=== PATIENT | male | born 1945 | race Caucasian/White ===

== ENCOUNTER 2017-07-28 14:29 | Inpatient (IN) | payer OTHER, MEDICARE ==
[2017-07-28] VITALS (8 sets, daily range): BP systolic 166–218; BP diastolic 84–100; PULSE 64–120; RESP 16–20; TEMP 97.6–97.7; O2SAT 95–98
[~2017-07-28] VITALS: Ht 167.6 cm; Wt 85.4 kg
[~2017-07-28 14:29] MED LIST: ACCUKIT; AMLO5TAB22 PO; ASPI325T PO; ATOR40TA PO; FENO54TA PO; Glucose Test Strips; LANTUS2P SQ; METF-324 PO; METO25 PO; MUPI2OIN TOP; NITR0.4S SL; NOVORP2 SQ; RAMI10CA PO
[2017-07-28] MEDS ORDERED: SODIUM CHLORIDE 0.9% FLUSH 10 ML FLUSH IVF PRN (14:45)
[2017-07-28] MEDS ORDERED: LABETALOL HCL 100 MG/20 ML VIAL IV PUSH ONE (14:45)
[2017-07-28] MEDS ORDERED: GABA300C5 PO (14:57)
[2017-07-28] MEDS ORDERED: METO25TA3 PO (14:57)
[2017-07-28] MEDS ORDERED: BUPR75TA PO (14:57)
[2017-07-28] MEDS ORDERED: METF1000 PO (14:57)
[2017-07-28] MEDS ORDERED: FISHCAP4 PO (14:57)
[2017-07-28] MEDS ORDERED: ASPI81CH7 CHEW (14:57)
[2017-07-28] MEDS ORDERED: AMLO5TAB2 PO (14:57)
--- NOTE | 2017-07-28 15:01 | RADRPT ---
EXAM DATE/TIME: 07/28/2017 14:47 [facility] COMPARISON: No previous studies available for comparison. INDICATIONS : CVA, neuro symptoms, right sided numbness, weakness MEDICAL HISTORY : None. SURGICAL HISTORY : None. ENCOUNTER: Initial ACUITY: 3 days PAIN SCORE: 0/10 LOCATION: Bilateral chest FINDINGS: Minimal bibasilar parenchymal changes. Mild cardiomegaly. The portion of the bony skeleton visualize d is unremarkable. CONCLUSION: Minimal bibasilar parenchymal changes. Mild compensated cardiomegaly. Yassine Faulkner MD FACR on July 28, 2017 at 14:58 Board Certified Radiologist. This report was verified electronically.
[2017-07-28 15:03] LABS: BASOPHIL # 0.1 TH/MM3 (0-0.2); BASOPHIL % 0.7 % (0.0-2.0); EOSINOPHIL # 0.1 TH/MM3 (0-0.4); EOSINOPHIL % 0.9 % (0.0-4.0); HEMATOCRIT 42.9 % (39.0-51.0); HEMOGLOBIN 14.4 GM/DL (13.0-17.0); LYMPH % 17.3 % (9.0-44.0); LYMPHOCYTE # 1.9 TH/MM3 (1.0-4.8); MEAN CELL VOLUME 83.7 FL (80.0-100.0); MEAN CORPUSCULAR HEMOGLOBIN 28.1 PG (27.0-34.0); MEAN CORPUSCULAR HGB CONC 33.5 % (32.0-36.0); MEAN PLATELET VOLUME 8.6 FL (7.0-11.0); MONO % 7.4 % (0.0-8.0); MONOCYTE # 0.8 TH/MM3 (0-0.9); NEUT % 73.7 % (16.0-70.0); PLATELET COUNT 233 TH/MM3 (150-450); RED BLOOD COUNT 5.12 MIL/MM3 (4.50-5.90); RED CELL DISTRIBUTION WIDTH 12.6 % (11.6-17.2); WHITE BLOOD COUNT 10.9 TH/MM3 (4.0-11.0)
[2017-07-28 15:17] LABS: CHLORIDE 108 MEQ/L (98-107); SODIUM (NA) 140 MEQ/L (136-145)
[2017-07-28 15:20] LABS: BICARBONATE 26.2 MEQ/L (21.0-32.0); BLOOD UREA NITROGEN 19 MG/DL (7-18); CALCIUM 9.2 MG/DL (8.5-10.1); GLUCOSE,RANDOM 154 MG/DL (74-106)
[2017-07-28 15:23] LABS: ALT (GPT) 24 U/L (12-78); AST (GOT) 20 U/L (15-37)
[2017-07-28 15:24] LABS: GLOMERULAR FILTRATION RATE 74 ML/MIN (>89)
[2017-07-28 15:25] LABS: TOTAL BILIRUBIN ADULT 0.5 MG/DL (0.2-1.0); TOTAL PROTEIN 8.3 GM/DL (6.4-8.2)
--- NOTE | 2017-07-28 15:25 | PD ---
HPI Chief Complaint: Neuro Symptoms/ Deficits Time Seen by Provider: 14:32 Travel History International Travel<30 days: No Contact w/Intl Traveler<30days: No Traveled to known affect area: No History of Present Illness HPI 71-year-old male with history of hypertension, diabetes, here for evaluation of right-sided weakness and paresthesias. Symptoms started 2 days ago and have been progressively worsening. Patient feels right arm and right leg weakness as well as numbness to his right arm, right leg, and right face. His daughter has also noted slurred speech. She noticed a slight right facial droop yesterday which seems to be worse today. She tried to convince her father to present to the emergency department yesterday, however the patient states that he wanted to wait until tomorrow to follow-up with his primary care physician. He is having a hard time ambulating and today started having some blurriness in all visual izquierdo. No headache. No chest pain or dyspnea. No fevers or recent illness. No abdominal pain. PFSH Past Medical History Arthritis: No Heart Rhythm Problems: No Cancer: No Cardiac Catheterization: Yes Cardiovascular Problems: Yes (HIGH CHOLESTEROL, [place], CARDIAC STENTS) High Cholesterol: Yes Chest Pain: No Congestive Heart Failure: No Diabetes: Yes Patient Takes Glucophage: Yes Diminished Hearing: No Gastrointestinal Disorders: No Glaucoma: No Hepatitis: No Hiatal Hernia: No Hypertension: Yes Medical other: No Musculoskeletal: Yes (HX OF BACK PROBLEMS) Neurologic: No Psychiatric: No Reproductive: No Respiratory: No Myocardial Infarction: Yes Thyroid Disease: No Tetanus Vaccination: Unknown Past Surgical History Abdominal Surgery: No Cardiac Surgery: Yes (CARDIAC STENTS) Ear Surgery: No Endocrine Surgery: No Eye Surgery: No Genitourinary Surgery: No Gynecologic Surgery: No Neurologic Surgery: No Oral Surgery: No Pacemaker: No Thoracic Surgery: No Other Surgery: Yes Social History Alcohol Use: No Tobacco Use: No Substance Use: No Allergies-Medications (Allergen,Severity, Reaction): Coded Allergies: codeine (Unverified Allergy, Intermediate, clammy,nausea., 07/28/17) morphine (Unverified Allergy, Intermediate, clammy, nausea, 07/28/17) Uncoded Allergies: NIASPAN (Allergy, Mild, ITCHING, 10/15/07) Reported Meds & Prescriptions Reported Meds & Active Scripts Active Reported Aspirin Children's (Aspirin) 81 Mg Chew 162 Mg CHEW DAILY Fish Oil + D3 (Fish Oil-Cholecalciferol) 1,200-1,000 Mg-Unit Cap 2 Cap PO DAILY Bupropion HCl 75 Mg Tab 75 Mg PO DAILY Metoprolol Tartrate 25 Mg Tab 25 Mg PO BID Gabapentin 300 Mg Cap 300 Mg PO HS Amlodipine (Amlodipine Besylate) 5 Mg Tab 5 Mg PO DAILY Metformin (Metformin HCl) 1,000 Mg Tab 1,000 Mg PO BIDPC Review of Systems Except as stated in HPI: all other systems reviewed are Neg Physical Exam Narrative GENERAL: Well-developed, well-nourished, awake, alert, GCS 15, no apparent distress. SKIN: Focused skin assessment warm/dry. HEAD: Atraumatic. Normocephalic. EYES: Pupils equal and round. No scleral icterus. No injection or drainage. ENT: No nasal bleeding or discharge. Mucous membranes pink and moist. NECK: Trachea midline. No JVD. CARDIOVASCULAR: Regular rate and rhythm. No murmur appreciated. RESPIRATORY: No accessory muscle use. Clear to auscultation. Breath sounds equal bilaterally. GASTROINTESTINAL: Abdomen soft, non-tender, nondistended. Hepatic and splenic margins not palpable. MUSCULOSKELETAL: No obvious deformities. No clubbing. No cyanosis. No edema. NEUROLOGICAL: Awake and alert. Slight right facial droop. No tongue deviation. Muscle strength in right upper and right lower extremities 3 out of 5, in the left upper and left lower extremities 5/5. No pronator drift. Dysmetria with [id number]-[id number] test on the right. PSYCHIATRIC: Appropriate mood and affect; insight and judgment normal. Data Data Last Documented VS Vital Signs Date Time Temp Pulse Resp B/P (MAP) Pulse Ox O2 Delivery O2 Flow Rate FiO2 07/28/17 15:18 68 16 173/84 (113) 96 Room Air 07/28/17 14:31 97.7 Orders Orders Electrocardiogram (07/28/17 14:40) Prothrombin Time / Inr (Pt) (07/28/17 14:40) Act Partial Throm Time (Ptt) (07/28/17 14:40) Complete Blood Count With Diff (07/28/17 14:40) Comprehensive Metabolic Panel (07/28/17 14:40) Ct Brain W/O Iv Contrast(Rout) (07/28/17 14:40) Chest, Single Ap (07/28/17 14:40) Ecg Monitoring (07/28/17 14:40) Iv Access Insert/Monitor (07/28/17 14:40) Oximetry (07/28/17 14:40) Sodium Chloride 0.9% Flush (Ns Flush) (07/28/17 14:45) Labetalol Inj (Trandate Inj) (07/28/17 14:45) Labs Laboratory Tests Test 07/28/17 14:40 White Blood Count 10.9 TH/MM3 Red Blood Count 5.12 MIL/MM3 Hemoglobin 14.4 GM/DL Hematocrit 42.9 % Mean Corpuscular Volume 83.7 FL Mean Corpuscular Hemoglobin 28.1 PG Mean Corpuscular Hemoglobin Concent 33.5 % Red Cell Distribution Width 12.6 % Platelet Count 233 TH/MM3 Mean Platelet Volume 8.6 FL Neutrophils (%) (Auto) 73.7 % Lymphocytes (%) (Auto) 17.3 % Monocytes (%) (Auto) 7.4 % Eosinophils (%) (Auto) 0.9 % Basophils (%) (Auto) 0.7 % Neutrophils # (Auto) 8.0 TH/MM3 Lymphocytes # (Auto) 1.9 TH/MM3 Monocytes # (Auto) 0.8 TH/MM3 Eosinophils # (Auto) 0.1 TH/MM3 Basophils # (Auto) 0.1 TH/MM3 CBC Comment DIFF FINAL Differential Comment Blood Urea Nitrogen 19 MG/DL Creatinine 1.00 MG/DL Random Glucose 154 MG/DL Total Protein 8.3 GM/DL Albumin 4.0 GM/DL Calcium Level 9.2 MG/DL Alkaline Phosphatase 109 U/L Aspartate Amino Transf (AST/SGOT) 20 U/L Alanine Aminotransferase (ALT/SGPT) 24 U/L Total Bilirubin 0.5 MG/DL Sodium Level 140 MEQ/L Potassium Level 4.1 MEQ/L Chloride Level 108 MEQ/L Carbon Dioxide Level 26.2 MEQ/L Anion Gap 6 MEQ/L Estimat Glomerular Filtration Rate 74 ML/MIN [facility] Medical Decision Making Medical Screen Exam Complete: Yes Emergency Medical Condition: Yes Interpretation(s) EKG: Sinus, rate 66, normal axis, normal intervals, Q waves in inferior leads, no acute ischemic abnormality. Differential Diagnosis CVA, ischemic versus hemorrhagic, metabolic abnormality, hypertensive crisis Narrative Course Initial vital signs show heart rate 60, blood pressure 218/100, pulse ox 97% on room air, oral temp 97.7F. Patient was given 10 mg of IV labetalol with improvement in blood pressure to 173/84. CBC is essentially unremarkable. CMP is remarkable for random glucose 154, otherwise unremarkable. Chest x-ray: Minimal bibasilar parenchymal change. Mild compensated cardiomegaly. CT head: Negative for acute process. Patient was made aware of all findings. He states he has taken 4 baby aspirin today. He will be admitted for further treatment and evaluation of CVA. Case discussed with hospitalist Dr. Pantoja who will admit the patient to her service. Diagnosis Primary Impression: CVA (cerebral vascular accident) Qualified Codes: I63.9 - Cerebral infarction, unspecified Admitting Information Admitting Physician Requests: Admit Krish Nowak MD July 28, 2017 15:25
[2017-07-28 15:26] LABS: ALKALINE PHOSPHATASE 109 U/L (45-117)
--- NOTE | 2017-07-28 15:48 | RADRPT ---
EXAM DATE/TIME: 07/28/2017 15:31 [facility] COMPARISON: No previous studies available for comparison. INDICATIONS : Right sided weakness and difficulty speaking. RADIATION DOSE: 59.73 CTDIvol (mGy) MEDICAL HISTORY : Cardiovascular disease. Hypercholesterolemia. Hypertension. SURGICAL HISTORY : Coronary artery stent. ENCOUNTER: Initial ACUITY: 2 days PAIN SCALE: 0/10 LOCATION: cranial TECHNIQUE: Multiple contiguous axial images were obtained of the head. Using automated exposure control and adjustment of the mA and/or kV according to patient size, radiation dose was kept as low as reasonably achievable to obtain optimal diagnostic quality images. DICOM format image data is av ailable electronically for review and comparison. FINDINGS: CEREBRUM: The ventricles are normal for age. No evidence of midline shift, mass lesion, hemorrha ge or acute infarction. No extra-axial fluid collections are seen. POSTERIOR FOSSA: The cerebellum and brainstem are intact. The 4th ventricle is midline. The cer ebellopontine angle is unremarkable. EXTRACRANIAL: The visualized portion of the orbits is intact. SKULL: The calvaria is intact. No evidence of skull fracture. CONCLUSION: Negative for acute process Yassine Faulkner MD FACR on July 28, 2017 at 15:45 Board Certified Radiologist. This report was verified electronically.
[2017-07-28] MEDS ORDERED: SODIUM CHLORIDE 0.9% FLUSH 10 ML FLUSH IV FLUSH PRN (16:15)
[2017-07-28] MEDS ORDERED: DEXTROSE 50% IN WATER 50 ML VIAL(D50) IV PUSH PRN (16:15)
[2017-07-28] MEDS ORDERED: GLUCAGON 1 MG/ML VIAL OTHER PRN (16:15)
[2017-07-28 16:44] LABS: PROTHROMBIN TIME - PATIENT 10.2 SEC (9.8-11.6)
[2017-07-28] MEDS ORDERED: INSULIN ASPART SUPPLEMENTAL SCALE SQ SCH (17:00)
[2017-07-28] MEDS: INSULIN ASPART SUPPLEMENTAL SCALE SQ SCH ×2 (17:47→21:00)
--- NOTE | 2017-07-28 18:58 | RADRPT ---
EXAM DATE/TIME: 07/28/2017 17:26 [facility] COMPARISON: No previous studies available for comparison. INDICATIONS : Right sided weakness, paresthesia, right facial droop, and slurred speech. MEDICAL HISTORY : Hypertension. Diabetes mellitus type 2. Hypercholesterolemia. Myocardial Infarction. SURGICAL HISTORY : Cardiac catheterization with stents x 2. ENCOUNTER: Initial ACUITY: 2 days PAIN SCORE: 0/10 LOCATION: Bilateral neck PEAK SYSTOLIC VELOCITIES (cm/sec): ICA/CCA RATIO: Right: 1.3 Left: 0.8 ICA: Right: 110 Left: 80 CCA: Right: 82 Left: 100 ECA: Right: 78 Left: 79 VERTEBRAL: Right: 71 antegrade Left: 53 antegrade Elevated flow velocities and ICA/CCA ratios have been found to correlate with increased degrees of vessel stenosis, calculated as percentage of diameter relative to a normal segment of distal ICA/CCA FINDINGS: RIGHT CAROTID: No significant stenosis is visualized. Mild plaque. The waveforms are within normal limits. LEFT CAROTID: No significant stenosis is visualized. Mild plaque. The waveforms are within normal limits. VERTEBRAL ARTERIES: Antegrade flow is seen in both vertebral arteries. MISCELLANEOUS: None. CONCLUSION: No hemodynamically significant stenosis in either carotid artery. Jayme Pretty MD on July 28, 2017 at 18:55 Board Certified Radiologist. This report was verified electronically.
[2017-07-28] MEDS ORDERED: PRAVASTATIN SOD 40 MG TAB PO SCH (21:00)
[2017-07-28] MEDS: SODIUM CHLORIDE 0.9% FLUSH 10 ML FLUSH IV FLUSH SCH (21:07)
[2017-07-28] MEDS: GABAPENTIN 300 MG CAP PO SCH (21:07)
[2017-07-28] MEDS: METOPROLOL TARTRATE 25 MG TAB PO SCH (21:07)
[2017-07-28] MEDS: HEPARIN SODIUM - SQ 10,000 UNITS/ML VIAL SQ SCH (21:08)
[2017-07-28] MEDS ORDERED: LORazepam 2 MG/ML VIAL IV PUSH PRN (23:30)
[2017-07-28] MEDS ORDERED: ALPRAZolam 0.25 MG TAB PO ONE (23:30)
[2017-07-29] VITALS (17 sets, daily range): BP systolic 143–186; BP diastolic 55–102; PULSE 64–127; RESP 12–26; TEMP 96.7–98; O2SAT 95–99
[2017-07-29] MEDS: HEPARIN SODIUM - SQ 10,000 UNITS/ML VIAL SQ SCH ×3 (06:04→20:46)
[2017-07-29] MEDS: INSULIN ASPART SUPPLEMENTAL SCALE SQ SCH ×4 (08:00→20:47)
[2017-07-29] MEDS: SODIUM CHLORIDE 0.9% FLUSH 10 ML FLUSH IV FLUSH SCH ×2 (09:00→20:47)
[2017-07-29] MEDS: METOPROLOL TARTRATE 25 MG TAB PO SCH (09:00)
[2017-07-29] MEDS: buPROPion HCL 75 MG TAB PO SCH (10:28)
[2017-07-29] MEDS: ASPIRIN 325 MG TAB PO SCH (10:29)
[2017-07-29] MEDS: amLODIPine BESYLATE 5 MG TAB PO SCH (10:29)
--- NOTE | 2017-07-29 10:36 | RADRPT ---
EXAM DATE/TIME: 07/29/2017 09:22 [facility] COMPARISON: No previous studies available for comparison. INDICATIONS : Right sided weakness. MEDICAL HISTORY : Hypertension. Diabetes mellitus type 2. SURGICAL HISTORY : None. ENCOUNTER: Initial ACUITY: 2 day PAIN SCORE: 0/10 LOCATION: head TECHNIQUE: Multiplanar, multisequence MRI of the brain was performed without contrast. FINDINGS: There is focal restricted diffusion involving the basalganglia left side extending through the recreation facility attendant ior limb internal capsule. There is no restricted effusion on the right. Ventricular size is appropriate. Mild periventricular white matter changes are evident. There is no parenchymal hemorrhage. No extra-axial fluid collection appreciated. Posterior fossa is unremarkable midline fourth ventricle The orbits and sinuses are unremarkable. CONCLUSION: Focal restricted diffusion basalganglia left side involving posterior limb internal capsule without h emorrhage. Mild atrophy. Yassine Faulkner MD FACR on July 29, 2017 at 10:05 Board Certified Radiologist. This report was verified electronically.
[2017-07-29 10:37] LABS: CHOLESTEROL/ HDL RATIO 6.38 RATIO; HDL CHOLESTEROL 35.7 MG/DL (40.0-60.0)
--- NOTE | 2017-07-29 10:37 | RADRPT ---
EXAM DATE/TIME: 07/29/2017 09:22 [facility] COMPARISON: No previous studies available for comparison. INDICATIONS : Right sided weakness. MEDICAL HISTORY : Hypertension. Diabetes mellitus type 2. SURGICAL HISTORY : None. ENCOUNTER: Initial ACUITY: 2 day PAIN SCORE: 0/10 LOCATION: head Please note a normal MRA of the brain does not entirely exclude the possibility of a small aneurysm, nor the possibility of distal intracranial vessel disease. TECHNIQUE: 3D time of flight MRA was performed. Source images, multiplanar STS MIP, and 3D volume MIP reconstru ctions were reviewed. FINDINGS: There is excellent visualization of the major intracranial arteries out to the second-order branch ve ssels. There is no evidence for aneurysm, vessel truncation or stenosis, and no evidence for vascula r malformation. CONCLUSION: Negative for major branch vessel occlusion.. Yassine Faulkner MD FACR on July 29, 2017 at 10:33 Board Certified Radiologist. This report was verified electronically.
--- NOTE | 2017-07-29 12:54 | HHI.HP ---
[facility] Admission Diagnosis CVA Diagnoses: Chief Complaint: Right-sided weakness and slurred speech Travel History International Travel<30 Days: No Contact w/Intl Traveler <30 Da: No Traveled to Known Affected Are: No History of Present Illness This patient is a 71-year-old gentleman with diabetes and hypertension who comes in with 2 days of worsening right-sided weakness and numbness. His daughter noticed that he had a facial droop and urged him to come to the hospital by the patient did refuse. He can no longer ambulate and has difficulty expressing himself and has come to the emergency room for further evaluation and treatment. MRI does show a left basal ganglia infarct. Patient has elevated blood pressure as well questionable adherence issues have been brought by the family. Blood pressure on arrival was 218/100. Patient normally takes amlodipine and metoprolol at home. The patient's symptoms appear to have worsened overnight and that his expressive aphasia is more dense as well as his right hemiparesis has become more dense. Patient be transferred to the ICU for further monitoring and for continued management. Review of Systems Constitutional: DENIES: Diaphoretic episodes, Fatigue, Fever, Weight gain, Weight loss, Chills, Dizziness, Change in appetite, Night Sweats Endocrine: DENIES: Heat/cold intolerance, Polydipsia, Polyuria, Polyphagia Eyes: DENIES: Blurred vision, Diplopia, Eye inflammation, Eye pain, Vision loss , Photosensitivity, Double Vision Ears, nose, mouth, throat: DENIES: Tinnitus, Hearing loss, Vertigo, Nasal discharge, Oral lesions, Throat pain, Hoarseness, Ear Pain, Running Nose, Epistaxis, Sinus Pain, Toothache, Odynophagia Respiratory: DENIES: Apneas, Cough, Snoring, Wheezing, Hemoptysis, Sputum production, Shortness of breath Cardiovascular: DENIES: Chest pain, Palpitations, Syncope, Dyspnea on Exertion , PND, Lower Extremity Edema, Orthopnea, Claudication Genitourinary: DENIES: Sexual dysfunction, Urinary frequency, Urinary incontinence, Urgency, Hematuria, Dysuria, Nocturia, Penile Discharge, Testicular Pain, Testicular Swelling Musculoskeletal: DENIES: Joint pain, Muscle aches, Stiffness, Joint Swelling, Back pain, Neck pain Integumentary: DENIES: Abnormal pigmentation, Nail changes, Pruritus, Rash Hematologic/lymphatic: DENIES: Bruising, Lymphadenopathy Immunologic/allergic: DENIES: Eczema, Urticaria Neurologic: COMPLAINS OF: Abnormal gait, Localized weakness, Speech Problems, Poor Balance, DENIES: Headache, Paresthesias, Seizures, Tremor Psychiatric: DENIES: Anxiety, Confusion, Mood changes, Depression, Hallucinations, Agitation, Suicidal Ideation, Homicidal Ideation, Delusions Except as stated in HPI: all other systems reviewed are Neg Past Family Social History Past Medical History Hypertension Diabetes Depression Past Surgical History Inguinal hernia repair Cardiac stent Reported Medications Reviewed in the EMR Allergies: Coded Allergies: codeine (Unverified Allergy, Intermediate, clammy,nausea., 07/28/17) morphine (Unverified Allergy, Intermediate, clammy, nausea, 07/28/17) Uncoded Allergies: NIASPAN (Allergy, Mild, ITCHING, 10/15/07) Active Ordered Medications Reviewed in the EMR Family History History of diabetes and hypertension Social History Lives with his family, no tobacco or alcohol dependency issues Retired Physical Exam Vital Signs Vital Signs Date Time Temp Pulse Resp B/P (MAP) Pulse Ox O2 Delivery O2 Flow Rate FiO2 07/29/17 12:13 97.0 74 18 160/82 (108) 96 07/29/17 12:00 97.0 74 18 160/98 (118) 96 07/29/17 08:35 96.9 71 19 164/87 (112) 96 07/29/17 08:00 96.9 71 19 164/87 (112) 96 07/29/17 08:00 68 07/29/17 04:00 97.6 127 18 178/90 (119) 98 07/29/17 00:00 96.7 116 17 168/81 (110) 99 07/28/17 20:00 97.6 120 19 166/87 (113) 95 07/28/17 19:39 74 07/28/17 18:24 97.7 69 18 178/85 (116) 98 07/28/17 17:06 07/28/17 15:18 68 16 173/84 (113) 96 Room Air 07/28/17 15:08 64 16 173/92 (119) 96 Room Air 07/28/17 14:58 65 16 181/89 (119) 97 Room Air 07/28/17 14:48 16 97 Room Air 07/28/17 14:47 16 97 Room Air 07/28/17 14:31 97.7 68 20 218/100 (139) 97 Physical Exam GENERAL: This is a well-nourished, well-developed patient, who is with slurred speech and with dense right hemiparesis SKIN: No rashes, ecchymoses or lesions. Cool and dry. HEAD: Atraumatic. Normocephalic. No temporal or scalp tenderness. EYES: Pupils equal round and reactive. Extraocular motions intact. No scleral icterus. No injection or drainage. ENT: Nose without bleeding, purulent drainage or septal hematoma. Throat without erythema, tonsillar hypertrophy or exudate. Uvula midline. Airway patent. NECK: Trachea midline. No JVD or lymphadenopathy. Supple, nontender, no meningeal signs. CARDIOVASCULAR: Regular rate and rhythm without murmurs, gallops, or rubs. RESPIRATORY: Clear to auscultation. Breath sounds equal bilaterally. No wheezes , rales, or rhonchi. GASTROINTESTINAL: Abdomen soft, non-tender, nondistended. No hepato-splenomegaly , or palpable masses. No guarding. MUSCULOSKELETAL: Extremities without clubbing, cyanosis, or edema. No joint tenderness, effusion, or edema noted. No calf tenderness. Negative Homans sign bilaterally. NEUROLOGICAL: Awake and alert. Right hemiparesis Right facial droop Laboratory Laboratory Tests Test 07/28/17 14:40 07/29/17 05:43 White Blood Count 10.9 Red Blood Count 5.12 Hemoglobin 14.4 Hematocrit 42.9 Mean Corpuscular Volume 83.7 Mean Corpuscular Hemoglobin 28.1 Mean Corpuscular Hemoglobin Concent 33.5 Red Cell Distribution Width 12.6 Platelet Count 233 Mean Platelet Volume 8.6 Neutrophils (%) (Auto) 73.7 Lymphocytes (%) (Auto) 17.3 Monocytes (%) (Auto) 7.4 Eosinophils (%) (Auto) 0.9 Basophils (%) (Auto) 0.7 Neutrophils # (Auto) 8.0 Lymphocytes # (Auto) 1.9 Monocytes # (Auto) 0.8 Eosinophils # (Auto) 0.1 Basophils # (Auto) 0.1 CBC Comment DIFF FINAL Differential Comment Prothrombin Time 10.2 Prothromb Time International Ratio 1.0 Activated Partial Thromboplast Time 24.0 Blood Urea Nitrogen 19 Creatinine 1.00 Random Glucose 154 Total Protein 8.3 Albumin 4.0 Calcium Level 9.2 Alkaline Phosphatase 109 Aspartate Amino Transf (AST/SGOT) 20 Alanine Aminotransferase (ALT/SGPT) 24 Total Bilirubin 0.5 Sodium Level 140 Potassium Level 4.1 Chloride Level 108 Carbon Dioxide Level 26.2 Anion Gap 6 Estimat Glomerular Filtration Rate 74 Triglycerides Level 287 Cholesterol Level 228 LDL Cholesterol 135 HDL Cholesterol 35.7 Cholesterol/HDL Ratio 6.38 Result Diagram: 07/28/17 1440 07/28/17 1440 Imaging Last Impressions Head Magnetic Resonance Angiography 07/29/17 0000 Signed Impressions: Service Date/Time: Saturday, July 29, 2017 09:22 - CONCLUSION: Negative for major branch vessel occlusion.. Yassine Faulkner MD FACR Brain MRI 07/29/17 0000 Signed Impressions: Service Date/Time: Saturday, July 29, 2017 09:22 - CONCLUSION: Focal restricted diffusion basalganglia left side involving posterior limb internal capsule without hemorrhage. Mild atrophy. Yassine Faulkner MD FACR Head CT 07/28/17 1440 Signed Impressions: Service Date/Time: Friday, July 28, 2017 15:31 - CONCLUSION: Negative for acute process Yassine Faulkner MD FACR Chest X-Ray 07/28/17 1440 Signed Impressions: Service Date/Time: Friday, July 28, 2017 14:47 - CONCLUSION: Minimal bibasilar parenchymal changes. Mild compensated cardiomegaly. Yassine Faulkner MD FACR Carotid Artery Ultrasound 07/28/17 0000 Signed Impressions: Service Date/Time: Friday, July 28, 2017 17:26 - CONCLUSION: No hemodynamically significant stenosis in either carotid artery. Jayme Pretty MD Caprini VTE Risk Assessment Caprini VTE Risk Assessment: Mod/High Risk (score >= 2) VTE Pharm Contraindication: High risk for bleeding Caprini Risk Assessment Model Point Value = 1 Point Value = 2 Point Value = 3 Point Value = 5 Age 41-60 Minor surgery BMI > 25 kg/m2 Swollen legs Varicose veins or History of unexplained or recurrent spontaneous Oral contraceptives or hormone replacement Sepsis (< 1 month) Serious lung disease, including pneumonia (< 1 month) Abnormal pulmonary function Acute myocardial infarction Congestive heart failure (< 1 month) History of inflammatory bowel disease Medical patient at bed rest Age 61-74 Arthroscopic surgery Major open surgery (> 45 min) Laparoscopic surgery (> 45 min) Malignancy Confined to bed (> 72 hours) Immobilizing plaster cast Central venous access Age >= 75 History of VTE Family history of VTE Factor V Leiden Prothrombin [id number] Lupus anticoagulant Anticardiolipin antibodies Elevated serum homocysteine Heparin-induced thrombocytopenia Other congenital or acquired thrombophilia Stroke (< 1 month) Elective arthroplasty Hip, pelvis, or leg fracture Acute spinal cord injury (< 1 month) Prophylaxis Regimen Total Risk Factor Score Risk Level Prophylaxis Regimen 0-1 Low Early ambulation 2 Moderate Order ONE of the following: *Sequential Compression Device (SCD) *Heparin 5000 units SQ BID 3-4 Higher Order ONE of the following medications: *Heparin 5000 units SQ TID *Enoxaparin/Lovenox 40 mg SQ daily (WT < 150 kg, CrCl > 30 mL/min) *Enoxaparin/Lovenox 30 mg SQ daily (WT < 150 kg, CrCl > 10-29 mL/min) *Enoxaparin/Lovenox 30 mg SQ BID (WT < 150 kg, CrCl > 30 mL/min) AND/OR *Sequential Compression Device (SCD) 5 or more Highest Order ONE of the following medications: *Heparin 5000 units SQ TID (Preferred with Epidurals) *Enoxaparin/Lovenox 40 mg SQ daily (WT < 150 kg, CrCl > 30 mL/min) *Enoxaparin/Lovenox 30 mg SQ daily (WT < 150 kg, CrCl > 10-29 mL/min) *Enoxaparin/Lovenox 30 mg SQ BID (WT < 150 kg, CrCl > 30 mL/min) AND *Sequential Compression Device (SCD) Assessment and Plan Problem List: (1) Diabetes mellitus ICD Code: E11.9 - Type 2 diabetes mellitus without complications Status: Chronic Plan: Continue with diabetic diet, patient on metformin which we will hold, sliding scale insulin for now and follow clinically (2) Hypertension Status: Chronic Plan: Uncontrolled When appropriate continue metoprolol and amlodipine (3) CVA (cerebral vascular accident) ICD Code: I63.9 - Cerebral infarction, unspecified Status: Acute Plan: Workup in progress with echocardiogram, Holter monitor patient with acute left basal ganglia infarct Atorvastatin Lipids uncontrolled Likely due to uncontrolled hypertension and diabetes Continue with rehab efforts Physician Certification 2 Midnight Certification Type: Admission for Inpatient Services Order for Inpatient Services The services are ordered in accordance with Medicare regulations or non- Medicare payer requirements, as applicable. In the case of services not specified as inpatient-only, they are appropriately provided as inpatient services in accordance with the 2-midnight benchmark. Estimated LOS (days): 4 4 days is the estimated time the patient will need to remain in the hospital, assuming treatment plan goals are met and no additional complications. Post-Hospital Plan: Not yet determined Problem Qualifiers (1) CVA (cerebral vascular accident): Qualified Codes: I63.9 - Cerebral infarction, unspecified Bushra Pantoja MD July 29, 2017 12:54
[2017-07-29 16:21] LABS: HEMOGLOBIN A1C 7.6 % (4.3-6.0)
[2017-07-29] MEDS ORDERED: LACTULOSE SYRUP 20 GM/30 ML CUP PO PRN (17:30)
[2017-07-29] MEDS ORDERED: MAGNESIUM HYDROXIDE SUSP 30 ML CUP PO PRN (17:30)
[2017-07-29] MEDS ORDERED: BISACODYL 10 MG SUPP RECTAL PRN (17:30)
[2017-07-29] MEDS ORDERED: SENNOSIDES 8.6 MG TAB PO PRN (17:30)
--- NOTE | 2017-07-29 20:18 | EKG ---
Date Performed: 07/28/2017 Time Performed: 14:47:29 PTAGE: 71 years EKG: Sinus rhythm CONSIDER INFERIOR MYOCARDIAL INFARCTION-age undetermined. ABNORMAL ECG PREVIOUS TRACING : 06/09/2012 06.45 DOCTOR: Fortunato Sanchez Interpretating Date/Time 07/29/2017 20:17:16
[2017-07-29] MEDS: GABAPENTIN 300 MG CAP PO SCH (20:46)
[2017-07-29] MEDS: DOCUSATE SODIUM 50 MG/SENNA 8.6 MG TAB PO SCH (20:47)
[2017-07-30] VITALS (17 sets, daily range): BP systolic 135–174; BP diastolic 66–86; PULSE 74–96; RESP 13–28; TEMP 97.4–98.2; O2SAT 93–96
[2017-07-30] MEDS: HEPARIN SODIUM - SQ 10,000 UNITS/ML VIAL SQ SCH ×3 (06:00→20:19)
[2017-07-30] MEDS: buPROPion HCL 75 MG TAB PO SCH (08:27)
[2017-07-30] MEDS: ATORVASTATIN 40 MG TAB PO SCH (08:27)
[2017-07-30] MEDS: amLODIPine BESYLATE 5 MG TAB PO SCH (08:27)
[2017-07-30] MEDS: INSULIN ASPART SUPPLEMENTAL SCALE SQ SCH ×4 (08:27→20:08)
[2017-07-30] MEDS: DOCUSATE SODIUM 50 MG/SENNA 8.6 MG TAB PO SCH ×2 (08:28→20:08)
[2017-07-30] MEDS: SODIUM CHLORIDE 0.9% FLUSH 10 ML FLUSH IV FLUSH SCH ×2 (08:28→20:08)
[2017-07-30] MEDS: ASPIRIN 325 MG TAB PO SCH (08:28)
--- NOTE | 2017-07-30 08:51 | PD.CONS ---
History of Present Illness Service Neurology Consult Requested By Medical Team Reason for Consult CVA Primary Care Physician [facility] History of Present Illness 71 y/o male who had weakness and numbness of his right side for 2 days, then daughter noted him to have right facial droop. He initially refused to come to the hospital until he was unable to ambulate and began having worsening speech. He has past medical hx of HTN, Hyperlipidemia, DM, [place]. No hx of a-fib. Had been on ASA 81mg 2 tabs daily at home, had not missed any doses. No previous hx of stroke or TIA. MRI showed stroke of Left Basal Ganglia. MRA head and CUS has been unremarkable. His BP on admit was 218/100. He denies any new problems overnight. No headache. He is unable to move his right side. Due to pt aphasia some hx is obtained from the nurse and the chart (Cesia Lucero) Review of Systems All other ROS: ROS reviewed as documented in chart (Cesia Lucero) Past Family Social History Allergies: Coded Allergies: codeine (Unverified Allergy, Intermediate, clammy,nausea., 07/28/17) morphine (Unverified Allergy, Intermediate, clammy, nausea, 07/28/17) Uncoded Allergies: NIASPAN (Allergy, Mild, ITCHING, 10/15/07) Past Medical History HTN, hyperlipidemia, DM, ROMEL w CPAP, TN Past Surgical History cardiac stent, thumb surgery Active Ordered Medications Current Medications Medications (Trade) Dose Ordered Sig/Sherie Route Start Time Stop Time Status Last Admin (NS Flush) 2 ml BID IV FLUSH 07/28/17 21:00 07/30/17 08:28 (NS Flush) 2 ml UNSCH PRN IV FLUSH 07/28/17 16:15 (Aspirin) 325 mg DAILY PO 07/29/17 09:00 07/30/17 08:28 (Heparin Inj) 5,000 units Q8HR SQ 07/28/17 22:00 07/29/17 20:46 (Norvasc) 5 mg DAILY PO 07/29/17 09:00 07/30/17 08:27 (Wellbutrin) 75 mg DAILY PO 07/29/17 09:00 07/30/17 08:27 (Neurontin) 300 mg HS PO 07/28/17 21:00 07/29/17 20:46 (Lopressor) 25 mg BID PO 07/28/17 21:00 Future Hold 07/29/17 09:00 (D50w (Vial) Inj) 50 ml UNSCH PRN IV PUSH 07/28/17 16:15 (Glucagon Inj) 1 mg UNSCH PRN OTHER 07/28/17 16:15 (NovoLOG SUPPLEMENTAL SCALE) 1 ACHS SLIDING SCALE SQ 07/28/17 17:00 07/30/17 08:27 (Ativan Inj) 0.5 mg ONCE PRN IV PUSH 07/28/17 23:30 07/30/17 23:29 07/29/17 08:22 (Lipitor) 40 mg DAILY PO 07/30/17 09:00 07/30/17 08:27 (Liz-Colace) 1 tab BID PO 07/29/17 21:00 07/30/17 08:28 (Milk Of Magnesia Liq) 30 ml Q12H PRN PO 07/29/17 17:30 (Senokot) 17.2 mg Q12H PRN PO 07/29/17 17:30 (Dulcolax Supp) 10 mg DAILY PRN RECTAL 07/29/17 17:30 (Lactulose Liq) 30 ml DAILY PRN PO 07/29/17 17:30 Family History no fam hx of stroke Social History former smoker, lives with family (Cesia Lucero) Exam I&O / VS Vital Signs Date Time Temp Pulse Resp B/P (MAP) Pulse Ox O2 Delivery O2 Flow Rate FiO2 07/30/17 06:00 80 07/30/17 04:10 78 07/30/17 04:10 78 21 173/77 (109) 95 07/30/17 03:20 80 23 146/86 (106) 93 07/30/17 03:20 80 07/30/17 02:00 88 07/30/17 02:00 88 28 95 07/30/17 00:00 76 07/30/17 00:00 97.4 76 22 151/66 (94) 95 07/29/17 20:00 76 07/29/17 20:00 97.4 76 22 159/83 (108) 95 07/29/17 18:00 66 07/29/17 16:00 98.0 64 12 143/55 (84) 98 07/29/17 16:00 64 07/29/17 15:42 66 14 155/73 (100) 98 07/29/17 15:00 66 23 171/92 (118) 97 07/29/17 14:42 72 24 163/88 (113) 97 07/29/17 14:00 74 19 170/78 (108) 97 07/29/17 13:30 74 22 155/65 (95) 97 07/29/17 13:15 72 26 172/102 (125) 97 07/29/17 13:00 74 07/29/17 13:00 74 19 186/91 (122) 98 07/29/17 12:40 97.6 76 16 184/77 (112) 07/29/17 12:13 97.0 74 18 160/82 (108) 96 07/29/17 12:00 97.0 74 18 160/98 (118) 96 General: Alert and Oriented, No acute distress Eye: PERRL, EOMI Respiratory: Non-labored respirations Cardiology: Normal rate Neurologic: Alert, Oriented Psychiatric: Cooperative, Appropriate mood & affect Exam Comments alert to time and place, eomi, PERRL, right facial droop, right hemiparesis, spontaneously moves toes on the right but not to command, filtration operator 0/5 on the right , left hemibody 5/5, brisk reflexes throughout, toe upgoing on the right, gait withheld, mild dysarthria and expressive aphasia, ? mild receptive aphasia, sensory normal, on the left coordination and f-n-f intact, unable to assess gait , no bruit (Cesia Lucero) Review/Management Diagnosis/Plan: (1) Sleep apnea, obstructive ICD Codes: G47.33 - Obstructive sleep apnea (adult) (pediatric) Status: Chronic Plan: continue CPAP (2) CVA (cerebral vascular accident) ICD Codes: I63.9 - Cerebral infarction, unspecified Status: Acute Plan: CT showed infarct of left basal ganglia CUS unremarkable MRA neg ECHO pending continue telemetry - monitor for a-fib pt had been on ASA 81mg 2 tabs daily at home will need different antiplatelet (3) Hypertension Status: Chronic (4) Hyperlipidemia Status: Chronic Plan: goal LDL <70 currently LDL 135 (5) Diabetes mellitus ICD Codes: E11.9 - Type 2 diabetes mellitus without complications Status: Chronic (Cesia Lucero) Diagnosis/Plan: (1) CVA (cerebral vascular accident) ICD Codes: I63.9 - Cerebral infarction, unspecified Status: Acute Plan: left mca infarct to subcortical region likely 2/2 chronic small vessel dz 2/2 HTN, DM, HLD CUS unremarkable MRA neg ECHO pending continue telemetry - monitor for a-fib recs plavix/statin should get event monitor to r/o afib; [facility]. no afib reported yet ok for floor with tele bp/hld/dm control rehab planning from neuro d/w PA. seen and examined. agree with above. (2) Hypertension Status: Chronic Plan: bp control <120/80 over the next few weeks (3) Diabetes mellitus ICD Codes: E11.9 - Type 2 diabetes mellitus without complications Status: Chronic Plan: glucose control (4) Hyperlipidemia Status: Chronic Plan: goal LDL <70 currently LDL 135 (Cullen Wheeler MD) Problem Qualifiers (1) CVA (cerebral vascular accident): Qualified Codes: I63.9 - Cerebral infarction, unspecified (2) Diabetes mellitus: Cesia Lucero July 30, 2017 08:51 Cullen Wheeler MD July 30, 2017 16:08
--- NOTE | 2017-07-30 11:32 | RADRPT ---
EXAM DATE/TIME: 07/30/2017 11:07 [place] COMPARISON: MRI BRAIN W/O CONTRAST, July 29, 2017, 9:22. CT BRAIN W/O CONTRAST, July 28, 2017, 15:31. INDICATIONS : Increased right facial droop. Difficulty speaking. Right sided weakness. Cerebrovascular accident. RADIATION DOSE: 57.37 CTDIvol (mGy) MEDICAL HISTORY : Hypertension. Myocardial infarction. Diabetes mellitus type 2. SURGICAL HISTORY : Coronary artery stent. ENCOUNTER: Subsequent ACUITY: 3 days PAIN SCALE: 0/10 LOCATION: cranial TECHNIQUE: Multiple contiguous axial images were obtained of the head. Using automated exposure control and adj ustment of the mA and/or kV according to patient size, radiation dose was kept as low as reasonably a chievable to obtain optimal diagnostic quality images. DICOM format image data is available electro nically for review and comparison. FINDINGS: There is increasing hypodensity in the left basal ganglia/external capsule region consistent with nelly lving acute infarct. There is no hemorrhage or mass. The no fractures are seen. Ventricles and cister ns are of normal size and configuration. CONCLUSION: Left basal ganglia acute infarct with slight increase in cytotoxic edema. Vitaliy Olivera MD on July 30, 2017 at 11:28 Board Certified Radiologist. This report was verified electronically.
--- NOTE | 2017-07-30 12:08 | ECHRPT ---
Indication: CVA/TIA CONCLUSIONS Normal left ventricular size. Mild concentric left ventricular hypertrophy. The left ventricular systolic function is mildly reduced with an estimated ejection fraction in the range of 45- 50%. The right ventricular size and systolic function are normal. Trace mitral valve regurgitation. There is trace tricuspid valve regurgitation. BP: 184 / 77 HR: Rhythm: Sinus MEASUREMENTS (Male / Female) Normal Values Technical Quality:Fair 2D ECHO LV Diastolic Diameter PLAX 4.4 cm 4.2 - 5.9 / 3.9 - 5.3 cm LV Systolic Diameter PLAX 3.5 cm IVS Diastolic Thickness 1.2 cm 0.6 - 1.0 / 0.6 - 0.9 cm LVPW Diastolic Thickness 1.2 cm 0.6 - 1.0 / 0.6 - 0.9 cm LV Relative Wall Thickness 0.5 RV Internal Dim ED PLAX 2.3 cm LA Systolic Diameter LX 3.0 cm 3.0 - 4.0 / 2.7 - 3.8 cm DOPPLER AV Peak Velocity 141.0 cm/s AV Peak Gradient 8.0 mmHg AV Mean Gradient 4.0 mmHg AV Velocity Time Integral 28.6 cm LVOT Peak Velocity 98.5 cm/s LVOT Peak Gradient 3.9 mmHg LVOT Velocity Time Integral 19.4 cm Mitral E Point Velocity 109.0 cm/s Mitral A Point Velocity 122.0 cm/s Mitral E to A Ratio 0.9 LV E' Lateral Velocity 11.6 cm/s Mitral E to LV E' Lateral Ratio 9.4 LV E' Septal Velocity 5.8 cm/s Mitral E to LV E' Septal Ratio 19.0 PV Peak Velocity 54.9 cm/s PV Peak Gradient 1.2 mmHg FINDINGS LEFT VENTRICLE Normal left ventricular size. Mild concentric left ventricular hypertrophy. The left ventricular systolic function is mildly reduced with an estimated ejection fraction in the range of 45- 50%. RIGHT VENTRICLE Normal right ventricular size and systolic function. LEFT ATRIUM The left atrial size is normal. RIGHT ATRIUM The right atrial size is normal. ATRIAL SEPTUM No atrial level shunt is demonstrated by color flow Doppler interrogation. AORTA The aortic root and proximal ascending aorta are normal in size on limited imaging. MITRAL VALVE Trace mitral valve regurgitation. AORTIC VALVE Trileaflet aortic valve. No aortic valve stenosis or regurgitation. TRICUSPID VALVE There is trace tricuspid valve regurgitation. PULMONARY VALVE No pulmonary valve regurgitation or stenosis. VESSELS The inferior vena cava is normal in size. PERICARDIUM No pericardial effusion. Fortunato Laura MD, FACC, FSCAI (Electronically Signed) Final Date:30 Jul 2017 12:07
--- NOTE | 2017-07-30 13:19 | HHI.PR ---
Subjective Remarks Patient seen and evaluated today with complaints of further right facial numbness. Repeat CT the head shows left basal ganglia infarct with some minimally increased edema. Patient clinically appears at baseline from yesterday's assessment. He is more alert today even. Echocardiogram completed. No evidence of A. fib on telemetry Objective Vitals Vital Signs Date Time Temp Pulse Resp B/P (MAP) Pulse Ox O2 Delivery O2 Flow Rate FiO2 07/30/17 12:00 92 07/30/17 12:00 98.2 82 24 152/81 (104) 93 07/30/17 10:00 96 07/30/17 08:00 82 07/30/17 08:00 98.0 90 27 162/76 (104) 96 07/30/17 06:00 80 07/30/17 04:10 78 07/30/17 04:10 78 21 173/77 (109) 95 07/30/17 03:20 80 23 146/86 (106) 93 07/30/17 03:20 80 07/30/17 02:00 88 07/30/17 02:00 88 28 95 07/30/17 00:00 76 07/30/17 00:00 97.4 76 22 151/66 (94) 95 07/29/17 20:00 76 07/29/17 20:00 97.4 76 22 159/83 (108) 95 07/29/17 18:00 66 07/29/17 16:00 98.0 64 12 143/55 (84) 98 07/29/17 16:00 64 07/29/17 15:42 66 14 155/73 (100) 98 07/29/17 15:00 66 23 171/92 (118) 97 07/29/17 14:42 72 24 163/88 (113) 97 07/29/17 14:00 74 19 170/78 (108) 97 07/29/17 13:30 74 22 155/65 (95) 97 I/O 07/29/17 07/29/17 07/29/17 07/30/17 07/30/17 07/30/17 07:00 15:00 23:00 07:00 15:00 23:00 Intake Total 150 ml 520 ml 120 ml Output Total 200 ml 850 ml 550 ml Balance -50 ml -330 ml -430 ml Intake Oral 150 ml 520 ml 120 ml Output Urine Total 200 ml 850 ml 550 ml # Bowel Movements 0 0 Result Diagram: 07/28/17 1440 07/28/17 1440 Objective Remarks GENERAL: This is a well-nourished, well-developed patient, in no apparent distress. CARDIOVASCULAR: Regular rate and rhythm without murmurs, gallops, or rubs. RESPIRATORY: Clear to auscultation. Breath sounds equal bilaterally. No wheezes , rales, or rhonchi. GASTROINTESTINAL: Abdomen soft, non-tender, nondistended. Normal active bowel sounds MUSCULOSKELETAL: extremities without clubbing, cyanosis, or edema. NEURO: Alert & Oriented x4 to person, place, time, situation. Right upper greater than lower hemiparesis, right facial droop, left unremarkable A/P Problem List: (1) Diabetes mellitus ICD Code: E11.9 - Type 2 diabetes mellitus without complications Status: Chronic Plan: Continue with diabetic diet, patient on metformin which we will hold, sliding scale insulin for now and follow clinically (2) Hypertension Status: Chronic Plan: Uncontrolled Will continue metoprolol and amlodipine (3) CVA (cerebral vascular accident) ICD Code: I63.9 - Cerebral infarction, unspecified Status: Acute Plan: Workup in progress for acute left basal ganglia infarct Atorvastatin Echo shows mildly reduced EF of 40-50%, no evidence of acute heart failure, continue with beta-tu and ARB Lipids uncontrolled Likely due to uncontrolled hypertension and diabetes Continue with rehab efforts Discharge Planning Likely to inpatient rehab when stable Problem Qualifiers (1) Diabetes mellitus: (2) CVA (cerebral vascular accident): Qualified Codes: I63.9 - Cerebral infarction, unspecified Bushra Pantoja MD July 30, 2017 13:19
[2017-07-30] MEDS: LOSARTAN 25 MG TAB PO SCH (13:50)
[2017-07-30 16:30] LABS: AUTOMATED NEUTROPHIL # 10.6 TH/MM3 (1.8-7.7); BASOPHIL # 0.1 TH/MM3 (0-0.2); BASOPHIL % 0.4 % (0.0-2.0); EOSINOPHIL % 0.2 % (0.0-4.0); HEMOGLOBIN 14.3 GM/DL (13.0-17.0); LYMPH % 12.2 % (9.0-44.0); LYMPHOCYTE # 1.6 TH/MM3 (1.0-4.8); MEAN CELL VOLUME 83.5 FL (80.0-100.0); MEAN CORPUSCULAR HEMOGLOBIN 27.8 PG (27.0-34.0); MEAN CORPUSCULAR HGB CONC 33.3 % (32.0-36.0); MEAN PLATELET VOLUME 8.3 FL (7.0-11.0); MONO % 7.7 % (0.0-8.0); NEUT % 79.5 % (16.0-70.0); PLATELET COUNT 218 TH/MM3 (150-450); RED BLOOD COUNT 5.15 MIL/MM3 (4.50-5.90); RED CELL DISTRIBUTION WIDTH 12.2 % (11.6-17.2); WHITE BLOOD COUNT 13.3 TH/MM3 (4.0-11.0)
[2017-07-30 16:41] LABS: CALCIUM 9.1 MG/DL (8.5-10.1)
[2017-07-30 16:42] LABS: BICARBONATE 27.3 MEQ/L (21.0-32.0)
[2017-07-30 16:45] LABS: CREATININE 0.9 MG/DL (0.60-1.30)
[2017-07-30] MEDS ORDERED: LORazepam 2 MG/ML VIAL IV PUSH PRN (16:45)
[2017-07-30] MEDS: levETIRAcetam 500 MG TAB PO SCH (20:08)
[2017-07-31] VITALS (14 sets, daily range): BP systolic 118–178; BP diastolic 60–96; PULSE 72–102; RESP 14–32; TEMP 98.3–98.6; O2SAT 91–94
[2017-07-31] MEDS: HEPARIN SODIUM - SQ 10,000 UNITS/ML VIAL SQ SCH ×3 (05:51→21:41)
[2017-07-31] MEDS: INSULIN ASPART SUPPLEMENTAL SCALE SQ SCH ×4 (08:00→20:54)
[2017-07-31] MEDS: SODIUM CHLORIDE 0.9% FLUSH 10 ML FLUSH IV FLUSH SCH ×2 (09:00→20:53)
[2017-07-31] MEDS: ATORVASTATIN 40 MG TAB PO SCH (10:06)
[2017-07-31] MEDS: buPROPion HCL 75 MG TAB PO SCH (10:06)
[2017-07-31] MEDS: DOCUSATE SODIUM 50 MG/SENNA 8.6 MG TAB PO SCH ×2 (10:07→20:53)
[2017-07-31] MEDS: CLOPIDOGREL 75 MG TAB PO SCH (10:07)
[2017-07-31] MEDS: LOSARTAN 25 MG TAB PO SCH (10:07)
[2017-07-31] MEDS: levETIRAcetam 500 MG TAB PO SCH ×2 (10:07→20:53)
--- NOTE | 2017-07-31 13:29 | HHI.PR ---
Subjective Remarks Patient seen and evaluated today in follow-up for evolving nasal ganglia stroke. Right-sided weakness appears to be stabilizing. Family at the bedside. Report increase in facial droop. Blood pressure and blood sugar are improved. Patient education provided with the daughter and the bedside Objective Vitals Vital Signs Date Time Temp Pulse Resp B/P (MAP) Pulse Ox O2 Delivery O2 Flow Rate FiO2 07/31/17 10:00 90 07/31/17 08:15 98.3 98 22 170/96 (120) 91 07/31/17 08:00 92 07/31/17 06:00 84 07/31/17 04:26 102 07/31/17 04:26 98.4 102 27 160/72 (101) 93 07/31/17 04:15 80 07/31/17 04:15 80 15 118/60 (79) 91 07/31/17 02:00 72 07/31/17 00:00 80 07/31/17 00:00 98.3 80 14 148/77 (100) 93 07/30/17 22:00 78 07/30/17 21:40 76 14 135/67 (89) 93 07/30/17 20:15 98.2 84 24 174/80 (111) 94 07/30/17 20:00 74 07/30/17 19:09 82 22 173/80 (111) 96 07/30/17 19:00 86 20 170/76 (107) 94 07/30/17 18:00 94 07/30/17 16:00 82 07/30/17 16:00 82 13 155/70 (98) 93 07/30/17 14:00 90 I/O 07/30/17 07/30/17 07/30/17 07/31/17 07/31/17 07/31/17 07:00 15:00 23:00 07:00 15:00 23:00 Intake Total 120 ml 480 ml 120 ml Output Total 550 ml 500 ml 900 ml 110 ml Balance -430 ml -20 ml -780 ml -110 ml Intake Oral 120 ml 480 ml 120 ml Output Urine Total 550 ml 500 ml 900 ml 110 ml # Bowel Movements 0 0 0 Result Diagram: 07/30/17 1620 07/30/17 1620 Imaging Last Impressions Head CT 07/30/17 0000 Signed Impressions: Service Date/Time: Sunday, July 30, 2017 11:07 - CONCLUSION: Left basal ganglia acute infarct with slight increase in cytotoxic edema. Vitaliy Olivera MD Head Magnetic Resonance Angiography 07/29/17 0000 Signed Impressions: Service Date/Time: Saturday, July 29, 2017 09:22 - CONCLUSION: Negative for major branch vessel occlusion.. Yassine Faulkner MD FACR Brain MRI 07/29/17 0000 Signed Impressions: Service Date/Time: Saturday, July 29, 2017 09:22 - CONCLUSION: Focal restricted diffusion basalganglia left side involving posterior limb internal capsule without hemorrhage. Mild atrophy. Yassine Faulkner MD FACR Chest X-Ray 07/28/17 1440 Signed Impressions: Service Date/Time: Friday, July 28, 2017 14:47 - CONCLUSION: Minimal bibasilar parenchymal changes. Mild compensated cardiomegaly. Yassine Faulkner MD FACR Carotid Artery Ultrasound 07/28/17 0000 Signed Impressions: Service Date/Time: Friday, July 28, 2017 17:26 - CONCLUSION: No hemodynamically significant stenosis in either carotid artery. Jayme Pretty MD Objective Remarks GENERAL: This is a well-nourished, well-developed patient, right facial droop CARDIOVASCULAR: Regular rate and rhythm without murmurs, gallops, or rubs. RESPIRATORY: Clear to auscultation. Breath sounds equal bilaterally. No wheezes , rales, or rhonchi. GASTROINTESTINAL: Abdomen soft, non-tender, nondistended. Normal active bowel sounds MUSCULOSKELETAL: Right-sided weakness NEURO: Alert & Oriented x4 to person, place, time, situation. Right upper greater than lower hemiparesis, right facial droop, left unremarkable A/P Problem List: (1) Diabetes mellitus ICD Code: E11.9 - Type 2 diabetes mellitus without complications Status: Chronic Plan: Continue with diabetic diet, patient on metformin which we will hold, sliding scale insulin for now and follow clinically Hemoglobin A 1 6 less than 8 (2) Hypertension Status: Chronic Plan: Improved, continue metoprolol, Cozaar and amlodipine (3) CVA (cerebral vascular accident) ICD Code: I63.9 - Cerebral infarction, unspecified Status: Acute Plan: Workup in progress for acute left basal ganglia infarct Atorvastatin, Plavix Echo shows mildly reduced EF of 40-50%, no evidence of acute heart failure, continue with beta-tu and ARB Continue atorvastatin Likely due to uncontrolled hypertension and diabetes Continue with rehab efforts Discharge Planning Likely to inpatient rehab in a.m. if stable Problem Qualifiers (1) Diabetes mellitus: (2) CVA (cerebral vascular accident): Qualified Codes: I63.9 - Cerebral infarction, unspecified Bushra Pantoja MD July 31, 2017 13:29
--- NOTE | 2017-07-31 18:41 | MG ---
cc: Cullen Wheeler MD ELECTROENCEPHALOGRAM RECORD NUMBER: [id number]. DESCRIPTION: History of confusion, difficulty with speech, stroke. A lot of myogenic artifact noted off and on. 5-7 Hz posterior rhythm, 5-20 microvolts. Off and on myogenic frontal artifact. Limited driving with photic stimulation. Single lead EKG showing sinus rhythm. Background more slowing, suggestive of drowsy and possible stage I sleep. INTERPRETATION: Mild encephalopathy in sleep state, low-amplitude EEG. Clinical correlation. MD RYAN Goodman/CHRIS , 06:30 PM , 06:40 PM
[2017-08-01] VITALS (8 sets, daily range): BP systolic 167–181; BP diastolic 83–90; PULSE 85–104; RESP 16–26; TEMP 98.2–99.2; O2SAT 95–96
[2017-08-01] MEDS: HEPARIN SODIUM - SQ 10,000 UNITS/ML VIAL SQ SCH ×2 (05:31→12:07)
[2017-08-01] MEDS: SODIUM CHLORIDE 0.9% FLUSH 10 ML FLUSH IV FLUSH SCH (09:16)
[2017-08-01] MEDS: INSULIN ASPART SUPPLEMENTAL SCALE SQ SCH ×2 (09:16→12:07)
[2017-08-01] MEDS: ATORVASTATIN 40 MG TAB PO SCH (09:17)
[2017-08-01] MEDS: DOCUSATE SODIUM 50 MG/SENNA 8.6 MG TAB PO SCH (09:17)
[2017-08-01] MEDS: levETIRAcetam 500 MG TAB PO SCH (09:17)
[2017-08-01] MEDS: CLOPIDOGREL 75 MG TAB PO SCH (09:17)
[2017-08-01] MEDS: LOSARTAN 25 MG TAB PO SCH (09:17)
[2017-08-01] MEDS: buPROPion HCL 75 MG TAB PO SCH (09:17)
[2017-08-01] MEDS ORDERED: LEVE500 PO (12:05)
[2017-08-01] MEDS ORDERED: NOVOLOGSS SQ (12:05)
[2017-08-01] MEDS ORDERED: ATOR40TA16 PO (12:05)
[2017-08-01] MEDS ORDERED: COZA25TA PO (12:05)
[2017-08-01] MEDS ORDERED: PLAV75TA29 PO (12:05)
--- NOTE | 2017-08-01 12:05 | HHI.DCPOC ---
Discharge Care Plan Diagnosis: (1) Diabetes mellitus (2) Hyperlipidemia (3) CVA (cerebral vascular accident) Goals to Promote Your Health * To prevent worsening of your condition and complications * To maintain your health at the optimal level Directions to Meet Your Goals Take your medications as prescribed Follow your dietary instruction Follow activity as directed Keep your appointments as scheduled Take your immunizations and boosters as scheduled If your symptoms worsen call your PCP, if no PCP go to Urgent Care Center or Emergency Room Smoking is Dangerous to Your Health. Avoid second hand smoke Call the 24-hour hour crisis hotline for domestic abuse at Bushra Pantoja MD August 01, 2017 12:05
[2017-08-01] MEDS ORDERED: ACETAMINOPHEN 500 MG CPLT PO ONE (12:15)
--- NOTE | 2017-08-01 12:15 | HHI.DS ---
Discharge Summary Admission Date July 29, 2017 at 12:48 Discharge Date: August 01, 2017 Admitting Diagnosis CVA (1) Diabetes mellitus ICD Code: E11.9 - Type 2 diabetes mellitus without complications Status: Chronic (2) Hypertension Status: Chronic (3) CVA (cerebral vascular accident) ICD Code: I63.9 - Cerebral infarction, unspecified Status: Acute Procedures EEG Brief History - From Admission This patient is a 71-year-old gentleman with diabetes and hypertension who comes in with 2 days of worsening right-sided weakness and numbness. His daughter noticed that he had a facial droop and urged him to come to the hospital by the patient did refuse. He can no longer ambulate and has difficulty expressing himself and has come to the emergency room for further evaluation and treatment. MRI does show a left basal ganglia infarct. Patient has elevated blood pressure as well questionable adherence issues have been brought by the family. Blood pressure on arrival was 218/100. Patient normally takes amlodipine and metoprolol at home. The patient's symptoms appear to have worsened overnight and that his expressive aphasia is more dense as well as his right hemiparesis has become more dense. Patient be transferred to the ICU for further monitoring and for continued management. CBC/BMP: 07/30/17 1620 07/30/17 1620 Significant Findings Laboratory Tests Test 07/30/17 16:20 White Blood Count 13.3 TH/MM3 (4.0-11.0) Neutrophils (%) (Auto) 79.5 % (16.0-70.0) Neutrophils # (Auto) 10.6 TH/MM3 (1.8-7.7) Monocytes # (Auto) 1.0 TH/MM3 (0-0.9) Random Glucose 169 MG/DL (74-106) Estimat Glomerular Filtration Rate 83 ML/MIN (>89) PE at Discharge GENERAL: This is a well-nourished, well-developed patient, right facial droop CARDIOVASCULAR: Regular rate and rhythm without murmurs, gallops, or rubs. RESPIRATORY: Clear to auscultation. Breath sounds equal bilaterally. No wheezes , rales, or rhonchi. GASTROINTESTINAL: Abdomen soft, non-tender, nondistended. Normal active bowel sounds MUSCULOSKELETAL: Right-sided weakness NEURO: Alert & Oriented x4 to person, place, time, situation. Right upper greater than lower hemiparesis, right facial droop, left unremarkable Pt update on day of discharge Patient has stabilized. Discharge to inpatient rehab discussed again with patient and with family at bedside. Hospital Course Patient had seen and evaluated for acute infarct which appears to be acute left basal infarct. Patient has uncontrolled diabetes uncontrolled blood pressure and poor follow-up. He is brought to the emergency room by his daughter. He has a dense right hemiparesis. He had some waxing and waning which were concerning for seizure. Keppra was started. Patient had EEG which was negative for acute epileptiform waves but not quite normal. Patient's been recommended for aspirin and Plavix and better control of his blood pressure and diabetes. He was seen by neurology in consultation. He did require ICU observation due to waxing and waning neurological state Pt Condition on Discharge: Good Discharge Disposition: Rehab Inpatient Discharge Time: <= 30 minutes Discharge Instructions DIET: Follow Instructions for: Diabetic Diet Speech Therapy-Diet Recommends: Mechanical Soft, [place] Thickened Liquids Activities you can perform: Regular-No Restrictions New Medications: Atorvastatin (Atorvastatin) 40 Mg Tab 40 MG PO DAILY for cva, #31 TAB Clopidogrel (Plavix) 75 Mg Tab 75 MG PO DAILY for cva, #31 TAB Insulin Aspart Inj (Novolog Inj) 100 Unit/Ml Inj 1 INJECTION SQ ACHS SLIDING SCALE for Blood Sugar Management, #100 INJECTION Levetiracetam (Keppra) 500 Mg Tab 500 MG PO Q12HR for Seizure Control, #31 TAB Losartan (Cozaar) 25 Mg Tab 25 MG PO DAILY for Blood Pressure Management, #31 TAB Continued Medications: Aspirin (Aspirin Children's) 81 Mg Chew 162 MG CHEW DAILY, TAB 0 Refills Bupropion HCl (Bupropion HCl) 75 Mg Tab 75 MG PO DAILY for Control Depression, TAB 0 Refills Fish Oil-Cholecalciferol (Fish Oil + D3) 1,200-1,000 Mg-Unit Cap 2 CAP PO DAILY for Nutritional Supplement, #30 CAP 0 Refills Metformin (Metformin) 1,000 Mg Tab 1000 MG PO BIDPC for Blood Sugar Management, #60 TAB 0 Refills Metoprolol Tartrate (Metoprolol Tartrate) 25 Mg Tab 25 MG PO BID, #60 TAB 0 Refills Discontinued Medications: Amlodipine (Amlodipine) 5 Mg Tab 5 MG PO DAILY for Blood Pressure Management, #30 TAB 0 Refills Gabapentin (Gabapentin) 300 Mg Cap 300 MG PO HS, #30 CAP 0 Refills Bushra Pantoja MD August 01, 2017 12:15
== END 2017-08-01 15:12 | DRG 64 ==
LOC: PHED 14:29 → INTOOBSV 16:17 → PHEDA 16:17 → PH3B 17:12 → PHICU 07-29 12:45 → OBSVTOIN 07-29 12:48
PROVIDERS: ADMIT Hospitalist; ATTEND Hospitalist
DX: I63.512 Cerebral infarction due to unspecified occlusion or stenosis of left middle cerebral artery (principal); G93.6 Cerebral edema; E11.65 Type 2 diabetes mellitus with hyperglycemia; G81.91 Hemiplegia, unspecified affecting right dominant side; R47.01 Aphasia; E78.5 Hyperlipidemia, unspecified; G47.33 Obstructive sleep apnea (adult) (pediatric); I10 Essential (primary) hypertension; I25.2 Old myocardial infarction; R20.2 Paresthesia of skin; R29.810 Facial weakness; Z87.891 Personal history of nicotine dependence; Z95.5 Presence of coronary angioplasty implant and graft; Z79.82 Long term (current) use of aspirin; Z79.84 Long term (current) use of oral hypoglycemic drugs
CPT/HCPCS: 70450; 70544; 70551; 71045; 80048; 80053; 80061; 82948; 83036; 85025; 85610; 85730; 93005; 93306; 93880; 95819; 96374; G8987-GO; G8987-GP; G8988-GO; G8988-GP; G8996-GN; G8997-GN; J1644; J1815; J2060